=== PATIENT | female | born 1995 | race African-American/Black ===

== ENCOUNTER 2019-11-24 22:23 | Emergency (ER) | payer MEDICAID ==
[~2019-11-24] VITALS: Ht 172.7 cm; Wt 65.8 kg
[2019-11-24] MEDS ORDERED: HYDROmorphone 1mg/ml Carpuject IVP ONE (22:45)
[2019-11-24] MEDS ORDERED: Omnipaque-300 100ml vial INJ PRN (22:45)
[2019-11-24 22:51] VITALS: BP 110/60
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
[2019-11-24 23:05] LABS: ANION GAP 12 mmol/L (5-15); BLOOD UREA NITROGEN 12 mg/dL (7-18); CALCIUM 8.9 MG/DL (8.5-10.1); CARBON DIOXIDE 23 MMOL/L (21-32); CHLORIDE 103 MMOL/L (98-107); CREATININE 0.7 MG/DL (0.55-1.30); POTASSIUM 4.4 MMOL/L (3.5-5.1); SODIUM 138 MMOL/L (136-145)
[2019-11-24 23:07] LABS: HEMATOCRIT 25.4 % (37.0-47.0); HEMOGLOBIN 9.3 G/DL (12.0-16.0); MEAN CORPUSCULAR VOLUME 85 FL (80-99); PLATELET COUNT 95 K/UL (150-450); RED BLOOD COUNT 2.98 M/UL (4.20-5.40); RED CELL DISTRIBUTION WIDTH 12.8 % (11.6-14.8); WHITE BLOOD COUNT 9.5 K/UL (4.8-10.8)
--- NOTE | 2019-11-24 23:15 | NUR ---
ED Nurse Note: Pt to Ct
[2019-11-24 23:16] LABS: ALANINE AMINOTRANSFERASE 19 U/L (12-78); ALBUMIN 4.3 G/DL (3.4-5.0); ALKALINE PHOSPHATASE 65 U/L (46-116); ASPARTATE AMINO TRANSFERASE 43 U/L (15-37); BILIRUBIN,TOTAL 1.3 MG/DL (0.2-1.0)
[2019-11-24 23:28] LABS: BILIRUBIN,DIRECT 0.3 MG/DL (0.0-0.3)
--- NOTE | 2019-11-24 23:35 | NUR ---
ED Nurse Note: Pt back from CT. IV fluids running per order.
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
[2019-11-25 01:00] VITALS: BP 112/68
[2019-11-25] MEDS ORDERED: Acetaminophen 500mg (ES) tab ORAL ONE (01:15)
[2019-11-25] MEDS ORDERED: TYLENOL325 MG ORAL (01:27)
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
[2019-11-25 01:50] VITALS: BP 110/60
--- NOTE | 2019-11-25 01:50 | NUR ---
ER DISCHARGE NOTE: Patient is cleared to be discharged per ERMD, pt is aox4, on room air, with stable vital signs. pt was given dc and prescription instructions, pt was able to verbalize understanding, pt id band and iv site removed without complications. pt is able to ambulate with steady gait. pt took all belongings. pt given women's clinic referrals, pt left with boyfriend
== END 2019-11-25 01:50 | disposition home or self-care (01) ==
LOC: EDBD 22:23 → EMR 22:50
DX: O26.891 Other specified pregnancy related conditions, first trimester (principal); S09.90XA Unspecified injury of head, initial encounter; S32.039A Unspecified fracture of third lumbar vertebra, initial encounter for closed fracture; Y04.2XXA Assault by strike against or bumped into by another person, initial encounter; Y93.89 Activity, other specified; Y92.810 Car as the place of occurrence of the external cause; Z3A.00 Weeks of gestation of pregnancy not specified
CPT/HCPCS: 36415; 70450; 70486; 71045; 74177; 80053; 82248; 84702; 85007; 85025; 96361; 96374; 96375; J1170; J2405; J7030; Q9967; Z7502; 99284